=== PATIENT | female | born 1970 | race Caucasian/White ===

== ENCOUNTER 2021-03-10 04:41 | Emergency (ER) | payer BC, SELFPAY ==
[2021-03-10 04:55] VITALS: BP 173/114; PULSE 84; RESP 18; TEMP 36.4; O2SAT 98; BMI 57.7
--- NOTE | 2021-03-10 05:02 | USCV_ITS ---
Mark Koo Age: 50 Gender: F : 1970 Exam Date: 03/10/2021 06:09 Ordering Phys: Dick Sheridan MD Technologist: Missy Peralta Exam Location: [facility] – [place] Indication: BLE PAIN HISTORY: Lower extremity swelling. Lower extremity pain. PROCEDURES: Venous duplex imaging was performed in bilateral lower extremities. The following venous structures were evaluated: common femoral vein, profunda vein, proximal portion of the greater saphenous vein, superficial femoral vein, and the popliteal vein. In addition, the posterior tibial and peroneal trunk were evaluated. Serial compression, augmentation maneuvers, and spectral Doppler flow evaluation were performed. FINDINGS: Examination was technically limited due to body habitus. Normal 2-D Doppler and augmentation and compressibility throughout the lower extremity venous structures. Additional imaging through the proximal calf veins also reveals no thrombus. Limited evaluation of the greater saphenous vein is patent with no thrombus. Small right popliteal cyst. CONCLUSIONS No DVT bilateral lower extremities. Dr. Jackie Vanegas DO (Electronically Signed) Final Date: 10 March 2021 07:44 S
--- NOTE | 2021-03-10 05:02 | W.ED.GENADLT ---
Documented by User: Dick Sheridan MD 03/10/21 05:40 HPI - General Adult General: Chief complaint: Extremity Problem,Nontraumatic Stated complaint: right leg pain Time Seen by Provider: 03/10/21 04:56 History of Present Illness: HPI narrative: This patient is a 50-year-old female with a history of diabetes presents to the emergency department complaint of right lower leg pain in the calf. Patient states she has been on Eliquis for the past 2 years. But stopped it about a month and a half ago as she did not think she needed it. Then she started having some aching in her right leg posteriorly and decided 3 days ago to start her Eliquis back subsequently started her menstrual period and was very heavy so she stopped it again. Patient states she has significant calf pain on the right. Previous DVT was in the left lower extremity. Patient is concerned that she has a blood clot again. Will do medical evaluation treat as needed Onset (ago): day(s) Location: lower extremity Severity: moderate and similar to prior episodes Associated symptoms: Deny chest pain, dyspnea, headache(s), nausea, rash, palpitations or vomiting Review of Systems General: Reports: 10 or more systems reviewed and unremarkable except in HPI and below Const: Denies: fever(s), chills, body aches or fatigue Eyes: Denies: change in vision or blurry vision ENMT: Denies: throat pain, hoarseness or mouth pain Card: Denies: chest pain, palpitations, irregular heart rhythm, edema, swelling of feet/ankles or lightheadedness Resp: Denies: dyspnea, productive cough, non-productive cough, wheezing or pain on inspiration GI: Denies: abdominal pain, nausea or vomiting : Denies: flank pain, difficulty voiding, dysuria, urinary frequency, urinary urgency or urinary hesitancy Musc: Reports: extremity pain and extremity swelling; Denies: neck pain, back pain, joint pain, joint swelling, joint redness, joint warmth or limited range of motion Skin/Breast: Denies: rash, pruritus, erythema or skin tenderness Neuro: Denies: headache(s), numbness in extremities or weakness in extremities Psych: Denies: anxiety or depression Physical Exam Const: COMMON NORMALS: no acute distress, average body habitus, patient oriented x3, no limitations, healthy appearing, alert and well nourished HENMT: COMMON NORMALS: normocephalic, atraumatic, hearing grossly normal bilaterally, external ears normal, EAC's normal, TM's normal bilaterally, Normal external nose present, Normal nasal mucous membranes and turbinates present, moist oral mucous membranes, oropharynx normal, dentition normal and gingiva normal HEAD & SCALP: normocephalic and atraumatic NOSE: Normal external nose present and Normal nasal mucous membranes and turbinates present EXTERNAL EAR: Yes external ears normal EXTERNAL AUDITORY CANAL: EAC's normal TYMPANIC MEMBRANE: TM's normal bilaterally Neck/C-Spine: COMMON NORMALS: full ROM, no lymphadenopathy, supple, no meningeal signs, no JVD, Thyroid normal and No carotid bruits THYROID: Thyroid normal Chest: COMMONS NORMALS: normal inspection of the chest, normal palpation of entire chest wall, normal inspection of the breasts and normal palpation of the breasts Breast/axilla inspection: Yes normal inspection of the breasts BREAST/AXILLA PALPATION: Yes normal palpation of the breasts Resp: COMMON NORMALS: normal respiratory effort, No retractions, No use of accessory muscles, clear to auscultation bilaterally and percussion normal AUSCULTATION: clear to auscultation bilaterally PERCUSSION: percussion normal Cardio: COMMON NORMALS: no JVD, regular rate, regular rhythm, S1 normal heart sound present, S2 normal heart sound present, No gallops present (Cardio), No clicks present (Cardio), No murmurs present (Cardio), No rub (Cardio) and Peripheral pulses 2+ throughout RATE: regular rate RHYTHM: regular rhythm HEART SOUNDS: S1 normal heart sound present and S2 normal heart sound present PERIPHERAL PULSES: Peripheral pulses 2+ throughout GI: COMMON NORMALS: Normal to inspection, nondistended, normoactive bowel sounds present, Soft to palpation, non-tender, No hepatosplenomegaly present, no masses and no bruits PALPATION: Yes Soft to palpation and Yes No hepatosplenomegaly present Back/Pelvis: COMMON NORMALS: thoracic and lumbar spine normal to inspection, no thoracic nor lumbar tenderness, thoraco-lumbar ROM normal and straight leg raise negative bilaterally Extremity: COMMON NORMALS: normal to inspection, full ROM, capillary refill normal, no joint enlargement, no clubbing, cyanosis or edema and no pedal edema RIGHT LOWER EXTREMITY: Yes lower leg Right lower leg: Yes palpation (Tenderness on palpation consistent with Homans' sign) Neuro: COMMON NORMALS: patient oriented x3 SENSORIUM/ORIENTATION: Yes alert MENINGEAL SIGNS: Yes no meningeal signs Course Consultations: Consultation #1: Care transferred to Dr. Treadwell for shift change Time: 05:39 Vital Signs: Vital signs: Vital Signs Temperature 97.6 F 03/10/21 04:55 Pulse Rate 86 03/10/21 07:09 Respiratory Rate 18 03/10/21 06:37 Blood Pressure 135/91 03/10/21 07:09 Pulse Oximetry 100 03/10/21 07:09 [facility] - General Adult Lab Data: Labs: Lab Results 03/10/21 03/10/21 03/10/21 Range/Units 05:10 05:15 05:15 WBC 9.3 (4.0-10.0) 10^3/ uL RBC 4.81 (4.1-5.3) 10^6/u L Hgb 14.8 (11.5-15.3) g/dL Hct 45.1 (37.0-47.0) % MCV 93.8 (81-99) fL MCH 30.8 (28.0-34.0) pg MCHC 32.8 (30.0-36.0) g/dL RDW 12.4 (12.1-15.1) % Plt Count 328 (130-400) 10^3/c mm MPV 9.9 (7.4-10.4) fL Neut % (Auto) 69.6 % Lymph % (Auto) 20.7 % Jackson % (Auto) 5.8 % Eos % (Auto) 3.1 % Baso % (Auto) 0.5 % Neut # (Auto) 6.44 (1.8-7.7) 10^3/u L Lymph # (Auto) 1.9 (0.8-4.8) 10^3/u L Jackson # (Auto) 0.5 (0.2-0.9) 10^3/u L Eos # (Auto) 0.3 (0.0-0.8) 10^3/u L Baso # (Auto) 0.1 (0.0-0.1) 10^3/u L Nucleated RBC % (a uto) 0 % Nucleated RBCs # 0.0 /100WBC PT (12.1-14.9) SECO NDS INR (0.8-1.2) APTT (23.9-36.7) SECO NDS D-Dimer (0-0.59) ug/mIFE U Sodium 137 (136-145) mmol/L Potassium 4.1 (3.5-5.1) mmol/L Chloride 101 (98-107) mmol/L Carbon Dioxide 25 (22-29) mmol/L Anion Gap 15.1 (5-19) BUN 12 (6-20) mg/dL Creatinine 0.7 (0.5-0.9) mg/dL GFR Calculation 88.9 L (90-130) mL/min Glucose 104 (65-115) mg/dL Calculated Osmolal ity 284 L (285-295) mOsm/k g Calcium 8.8 (8.5-10.5) mg/dL Total Bilirubin 0.3 (0.15-1.2) mg/dL AST 16 (0-32) U/L ALT 17 (0-33) U/L Alkaline Phosphata se 88 (35-105) IU/L Total Protein 7.3 (6.6-8.7) g/dL Albumin 3.8 (3.5-5.2) g/dL Globulin 3.5 (1.3-4.6) g/dL Urine Color Yellow (Yellow) Urine Appearance Clear (CLEAR) Urine pH 7 (5-7) Ur Specific Gravit y 1.005 (1.005-1.030) Urine Protein Neg (Negative) Urine Glucose (UA) Norm (Normal) Urine Ketones Negative (Negative) Urine Blood 3+ H (Negative) Urine Nitrate Negative (Negative) Urine Bilirubin Neg (Negative) Urine Urobilinogen Norm (Negative) mg/dL Ur Leukocyte Jessica ase Trace H (Negative) Urine RBC 0-4 H (0-2) /hpf Urine WBC 5-10 H (0-5) /hpf Ur Squamous Epith Cells 0-4 H (0-5) /hpf Amorphous Sediment Not Reportable Urine Bacteria 1+ H (NONE) /hpf 03/10/21 Range/Units 05:15 WBC (4.0-10.0) 10^3/ uL RBC (4.1-5.3) 10^6/u L Hgb (11.5-15.3) g/dL Hct (37.0-47.0) % MCV (81-99) fL MCH (28.0-34.0) pg MCHC (30.0-36.0) g/dL RDW (12.1-15.1) % Plt Count (130-400) 10^3/c mm MPV (7.4-10.4) fL Neut % (Auto) % Lymph % (Auto) % Jackson % (Auto) % Eos % (Auto) % Baso % (Auto) % Neut # (Auto) (1.8-7.7) 10^3/u L Lymph # (Auto) (0.8-4.8) 10^3/u L Jackson # (Auto) (0.2-0.9) 10^3/u L Eos # (Auto) (0.0-0.8) 10^3/u L Baso # (Auto) (0.0-0.1) 10^3/u L Nucleated RBC % (a uto) % Nucleated RBCs # /100WBC PT 13.70 (12.1-14.9) SECO NDS INR 1.02 (0.8-1.2) APTT 28.1 (23.9-36.7) SECO NDS D-Dimer 2.01 H (0-0.59) ug/mIFE U Sodium (136-145) mmol/L Potassium (3.5-5.1) mmol/L Chloride (98-107) mmol/L Carbon Dioxide (22-29) mmol/L Anion Gap (5-19) BUN (6-20) mg/dL Creatinine (0.5-0.9) mg/dL GFR Calculation (90-130) mL/min Glucose (65-115) mg/dL Calculated Osmolal ity (285-295) mOsm/k g Calcium (8.5-10.5) mg/dL Total Bilirubin (0.15-1.2) mg/dL AST (0-32) U/L ALT (0-33) U/L Alkaline Phosphata se (35-105) IU/L Total Protein (6.6-8.7) g/dL Albumin (3.5-5.2) g/dL Globulin (1.3-4.6) g/dL Urine Color (Yellow) Urine Appearance (CLEAR) Urine pH (5-7) Ur Specific Gravit y (1.005-1.030) Urine Protein (Negative) Urine Glucose (UA) (Normal) Urine Ketones (Negative) Urine Blood (Negative) Urine Nitrate (Negative) Urine Bilirubin (Negative) Urine Urobilinogen (Negative) mg/dL Ur Leukocyte Jessica ase (Negative) Urine RBC (0-2) /hpf Urine WBC (0-5) /hpf Ur Squamous Epith Cells (0-5) /hpf Amorphous Sediment Urine Bacteria (NONE) /hpf Discharge Plan Discharge Patient Disposition: Home Clinical Impression: Pain in right lower leg Condition: Stable Prescriptions: New diclofenac sodium 75 mg tablet,delayed release (DR/EC) 75 mg PO Q12H PRN (Reason: pain) Qty: 20 RF: 0 Discharge Orders: Discharge ED (Routine); Ordered 03/10/21 Ordered By: Mikael Treadwell Patient Instructions: Opioid Safety Coding Level of Care Code ED Director Of Cardiology for Chg Fwd Exam Comprehensive Documented by User: Mikael Treadwell DO 03/10/21 08:05 HPI - General Adult General: Chief complaint: Extremity Problem,Nontraumatic Stated complaint: right leg pain Time Seen by Provider: 03/10/21 04:56 Course Vital Signs: Vital signs: Vital Signs Temperature 97.6 F 03/10/21 04:55 Pulse Rate 86 03/10/21 07:09 Respiratory Rate 18 03/10/21 06:37 Blood Pressure 135/91 03/10/21 07:09 Pulse Oximetry 100 03/10/21 07:09 MDM - General Adult MDM Narrative: Medical decision making narrative: Venous duplex negative. Examined the patient nation of the patient complained mostly of right lateral calf pain straight leg raising negative sensation is normal. Her D-dimer is mildly elevated but she was having some abnormal uterine bleeding that has stopped. She not taking Eliquis lately. The original DVT was precipitated by a lot of extra driving she had done for her work. She does not have a primary care provider at this time. I suspect this is more musculoskeletal she also was noted during exam we had her straighten her leg to develop some muscle cramping that was resolved by repositioning she had a negative straight leg raising. Some of this may just be muscle cramping. Her electrolytes are normal. We will go ahead and discharge her home with diclofenac to use as needed set her up for PCP. Urine shows a contamination she not currently having any symptoms of UTI so we are not going to treat her with any antibiotics. Lab Data: Labs: Lab Results 03/10/21 03/10/21 03/10/21 Range/Units 05:10 05:15 05:15 WBC 9.3 (4.0-10.0) 10^3/ uL RBC 4.81 (4.1-5.3) 10^6/u L Hgb 14.8 (11.5-15.3) g/dL Hct 45.1 (37.0-47.0) % MCV 93.8 (81-99) fL MCH 30.8 (28.0-34.0) pg MCHC 32.8 (30.0-36.0) g/dL RDW 12.4 (12.1-15.1) % Plt Count 328 (130-400) 10^3/c mm MPV 9.9 (7.4-10.4) fL Neut % (Auto) 69.6 % Lymph % (Auto) 20.7 % Jackson % (Auto) 5.8 % Eos % (Auto) 3.1 % Baso % (Auto) 0.5 % Neut # (Auto) 6.44 (1.8-7.7) 10^3/u L Lymph # (Auto) 1.9 (0.8-4.8) 10^3/u L Jackson # (Auto) 0.5 (0.2-0.9) 10^3/u L Eos # (Auto) 0.3 (0.0-0.8) 10^3/u L Baso # (Auto) 0.1 (0.0-0.1) 10^3/u L Nucleated RBC % (a uto) 0 % Nucleated RBCs # 0.0 /100WBC PT (12.1-14.9) SECO NDS INR (0.8-1.2) APTT (23.9-36.7) SECO NDS D-Dimer (0-0.59) ug/mIFE U Sodium 137 (136-145) mmol/L Potassium 4.1 (3.5-5.1) mmol/L Chloride 101 (98-107) mmol/L Carbon Dioxide 25 (22-29) mmol/L Anion Gap 15.1 (5-19) BUN 12 (6-20) mg/dL Creatinine 0.7 (0.5-0.9) mg/dL GFR Calculation 88.9 L (90-130) mL/min Glucose 104 (65-115) mg/dL Calculated Osmolal ity 284 L (285-295) mOsm/k g Calcium 8.8 (8.5-10.5) mg/dL Total Bilirubin 0.3 (0.15-1.2) mg/dL AST 16 (0-32) U/L ALT 17 (0-33) U/L Alkaline Phosphata se 88 (35-105) IU/L Total Protein 7.3 (6.6-8.7) g/dL Albumin 3.8 (3.5-5.2) g/dL Globulin 3.5 (1.3-4.6) g/dL Urine Color Yellow (Yellow) Urine Appearance Clear (CLEAR) Urine pH 7 (5-7) Ur Specific Gravit y 1.005 (1.005-1.030) Urine Protein Neg (Negative) Urine Glucose (UA) Norm (Normal) Urine Ketones Negative (Negative) Urine Blood 3+ H (Negative) Urine Nitrate Negative (Negative) Urine Bilirubin Neg (Negative) Urine Urobilinogen Norm (Negative) mg/dL Ur Leukocyte Jessica ase Trace H (Negative) Urine RBC 0-4 H (0-2) /hpf Urine WBC 5-10 H (0-5) /hpf Ur Squamous Epith Cells 0-4 H (0-5) /hpf Amorphous Sediment Not Reportable Urine Bacteria 1+ H (NONE) /hpf 03/10/21 Range/Units 05:15 WBC (4.0-10.0) 10^3/ uL RBC (4.1-5.3) 10^6/u L Hgb (11.5-15.3) g/dL Hct (37.0-47.0) % MCV (81-99) fL MCH (28.0-34.0) pg MCHC (30.0-36.0) g/dL RDW (12.1-15.1) % Plt Count (130-400) 10^3/c mm MPV (7.4-10.4) fL Neut % (Auto) % Lymph % (Auto) % Jackson % (Auto) % Eos % (Auto) % Baso % (Auto) % Neut # (Auto) (1.8-7.7) 10^3/u L Lymph # (Auto) (0.8-4.8) 10^3/u L Jackson # (Auto) (0.2-0.9) 10^3/u L Eos # (Auto) (0.0-0.8) 10^3/u L Baso # (Auto) (0.0-0.1) 10^3/u L Nucleated RBC % (a uto) % Nucleated RBCs # /100WBC PT 13.70 (12.1-14.9) SECO NDS INR 1.02 (0.8-1.2) APTT 28.1 (23.9-36.7) SECO NDS D-Dimer 2.01 H (0-0.59) ug/mIFE U Sodium (136-145) mmol/L Potassium (3.5-5.1) mmol/L Chloride (98-107) mmol/L Carbon Dioxide (22-29) mmol/L Anion Gap (5-19) BUN (6-20) mg/dL Creatinine (0.5-0.9) mg/dL GFR Calculation (90-130) mL/min Glucose (65-115) mg/dL Calculated Osmolal ity (285-295) mOsm/k g Calcium (8.5-10.5) mg/dL Total Bilirubin (0.15-1.2) mg/dL AST (0-32) U/L ALT (0-33) U/L Alkaline Phosphata se (35-105) IU/L Total Protein (6.6-8.7) g/dL Albumin (3.5-5.2) g/dL Globulin (1.3-4.6) g/dL Urine Color (Yellow) Urine Appearance (CLEAR) Urine pH (5-7) Ur Specific Gravit y (1.005-1.030) Urine Protein (Negative) Urine Glucose (UA) (Normal) Urine Ketones (Negative) Urine Blood (Negative) Urine Nitrate (Negative) Urine Bilirubin (Negative) Urine Urobilinogen (Negative) mg/dL Ur Leukocyte Jessica ase (Negative) Urine RBC (0-2) /hpf Urine WBC (0-5) /hpf Ur Squamous Epith Cells (0-5) /hpf Amorphous Sediment Urine Bacteria (NONE) /hpf Discharge Plan Discharge Patient Disposition: Home Clinical Impression: Pain in right lower leg Condition: Stable Prescriptions: New diclofenac sodium 75 mg tablet,delayed release (DR/EC) 75 mg PO Q12H PRN (Reason: pain) Qty: 20 RF: 0 Discharge Orders: Discharge ED (Routine); Ordered 03/10/21 Ordered By: Mikael Treadwell Patient Instructions: Opioid Safety Coding Level of Care Code ED Director Of Cardiology for Chg Fwd Exam Comprehensive
[2021-03-10 05:33] LABS: Basophils # 0.1 10^3/uL (0.0-0.1); Basophils % 0.5 %; Eosinophils # 0.3 10^3/uL (0.0-0.8); Eosinophils % 3.1 %; Hematocrit 45.1 % (37.0-47.0); Hemoglobin 14.8 g/dL (11.5-15.3); Lymphocytes # 1.9 10^3/uL (0.8-4.8); Lymphocytes % 20.7 %; Mean Corpuscular HGB Conc 32.8 g/dL (30.0-36.0); Mean Corpuscular Hemoglobin 30.8 pg (28.0-34.0); Mean Corpuscular Volume 93.8 fL (81-99); Mean Platelet Volume 9.9 fL (7.4-10.4); Monocytes # 0.5 10^3/uL (0.2-0.9); Monocytes % 5.8 %; Neutrophils # 6.44 10^3/uL (1.8-7.7); Neutrophils % 69.6 %; Nucleated Red Blood Cells % 0 %; Platelet Count 328 10^3/cmm (130-400); Red Blood Count 4.81 10^6/uL (4.1-5.3); Red Cell Distribution Width 12.4 % (12.1-15.1); White Blood Count 9.3 10^3/uL (4.0-10.0)
[2021-03-10 05:41] LABS: Add Urine Culture? No; Add Urine Microscopic? YES; Bacteria Urine 1+ /hpf; Bilirubin Urine Neg (Negative); Blood Urine 3+ (Negative); Glucose Urine UA Norm (Normal); Ketones Urine Negative (Negative); Leukocyte Esterase Urine Trace (Negative); Nitrate Urine Negative (Negative); Protein Urine Neg (Negative); RBC Urine 0-4 /hpf (0-2); Specific Gravity, Urine 1.005 (1.005-1.030); Squamous Epithelial Cell Urine 0-4 /hpf (0-5); Urine Appearance Clear (CLEAR); Urine Color Yellow (Yellow); Urobilinogen Urine Norm (Negative); pH Urine 7 (5-7)
[2021-03-10 05:50] LABS: Alanine Aminotransferase 17 U/L (0-33); Albumin Level 3.8 g/dL (3.5-5.2); Alkaline Phosphatase 88 IU/L (35-105); Anion Gap 15.1 (5-19); Aspartate Amino Transferase 16 U/L (0-32); Blood Urea Nitrogen 12 mg/dL (6-20); Calcium 8.8 mg/dL (8.5-10.5); Carbon Dioxide 25 mmol/L (22-29); Chloride 101 mmol/L (98-107); Globulin 3.5 g/dL (1.3-4.6); Glomerular Filtration Rate 88.9 mL/min (90-130); Glucose 104 mg/dL (65-115); Osmolality Calculated 284 mOsm/kg (285-295); Potassium 4.1 mmol/L (3.5-5.1); Sodium 137 mmol/L (136-145); Total Bilirubin 0.3 mg/dL (0.15-1.2); Total Protein 7.3 g/dL (6.6-8.7)
[2021-03-10 06:07] LABS: D Dimer 2.01 ug/mIFEU (0-0.59); INR 1.02 (0.8-1.2); Partial Thromboplastin Time 28.1 SECONDS (23.9-36.7)
[2021-03-10 06:37] VITALS: BP 151/91; PULSE 79; RESP 18; O2SAT 95
[2021-03-10 07:09] VITALS: BP 135/91; PULSE 86; O2SAT 100
--- NOTE | 2021-03-10 08:39 | DCPLANNER ---
mortuary operations manager was asked to get patient established with a primary care physician, Dr. Valencia, at [facility]. mortuary operations manager called the clinic, spoke with Binta, gave clinic patients information. A follow up appointment was scheduled for Tuesday, March 23, 2021 at 8:[address] Bennett. mortuary operations manager informed ER physician, and patient of the scheduled appointment.
--- NOTE | 2021-03-25 11:56 | DCPLANNER ---
Patient had a follow up appointment scheduled for 03.23.21 with [facility] with Dr. Bennett - patient did attend appointment.
== END 2021-03-10 09:00 | disposition home or self-care (01) ==
PROVIDERS: Emergency Medicine; Emergency Provider Family Medicine
DX: M79.661 Pain in right lower leg (principal); E11.9 Type 2 diabetes mellitus without complications
CPT/HCPCS: 80053; 81001; 85025; 85378; 85610; 85730; 93970; 99283

== ENCOUNTER → 2021-03-23 09:16 | Outpatient (BNVA) | payer BC, SELFPAY | PROVIDERS: PCP Family Medicine; Visit Provider Family Medicine | DX: R63.5 Abnormal weight gain (principal); Z13.1 Encounter for screening for diabetes mellitus; Z13.6 Encounter for screening for cardiovascular disorders; M72.2 Plantar fascial fibromatosis | CPT/HCPCS: 80053; 80061; 83036; 84443 ==

== ENCOUNTER → 2021-06-30 09:54 | Outpatient (BNVA) | payer BC, SELFPAY | PROVIDERS: PCP Family Medicine; Visit Provider Podiatrist Foot & Ankle Surgery | DX: M79.672 Pain in left foot (principal); M79.671 Pain in right foot; M21.612 Bunion of left foot; M21.611 Bunion of right foot | CPT/HCPCS: 73630 ==

== ENCOUNTER 2021-07-19 20:37 | Emergency (ER) | payer BC, SELFPAY ==
[2021-07-19 20:51] VITALS: BP 169/104; PULSE 98; RESP 18; TEMP 36.4; O2SAT 95; BMI 55.7
--- NOTE | 2021-07-19 20:57 | USR_ITS ---
PROCEDURE INFORMATION: Exam: US Duplex Right Lower Extremity Veins, Limited Exam date and time: 07/19/2021 8:57 PM Age: 51 years old Clinical indication: Pain; Leg, lower; Right; Additional info: Dvt TECHNIQUE: Imaging protocol: Real-time Duplex ultrasound of the Right Lower Extremity with 2-D cao scale, color Doppler flow and spectral waveform analysis with image documentation. Limited exam was focused on the right lower extremity veins. COMPARISON: [place] [id number] ORTH 06/30/2021 10:02 AM FINDINGS: Right deep veins: Nonocclusive deep vein thrombosis in the right popliteal vein and peroneal vein. Normal compressibility, flow, and augmentation in the right common femoral, femoral, and profunda femoral veins. Right superficial veins: Varicose veins in the posterior right calf with intraluminal thrombus. Soft tissues: Unremarkable. US/[place] [id number] IMPRESSION: 1. Nonocclusive deep vein thrombosis in the right popliteal and peroneal veins. 2. Superficial thrombosis within varicose veins in the posterior right calf. Radiation Dose CTDIVOL = (mGy): DLP = (mGy-cm)
--- NOTE | 2021-07-19 20:58 | ED_ITS ---
HPI - Extremity Injury (Lower) General: Chief Complaint: Extremity Problem,Nontraumatic Stated Complaint: sent from Urgent Care for RT LEG Time Seen by Provider: 07/19/21 20:58 History of Present Illness: HPI Narrative: 51-year-old female comes in today with complaints of pain to the calf of the right lower leg. Patient appears well. Patient appears no acute distress. Patient reports that she has history of DVT but this does not remind her of the same pain that she had before. Patient was seen at urgent care and they recommended that she be evaluated further for DVT rule out. Patient does not take her routine antiplatelet or anticoagulant agent. Review of Systems General: Reports: 10 or more systems reviewed and unremarkable except in HPI and below Musc: Reports: other (Right calf pain) PFSH ED PFSH: Family History Other Cancer Chronic kidney disease (CKD) Diabetes Hypertension Stroke Social History Smoking and tobacco status: never smoked Second hand smoke exposure: No Alcohol intake: never Desire information about alcohol rehabilitation?: No Desire information about substance/drug rehabilitation?: No Physical Exam Const: COMMON NORMALS: no acute distress and patient oriented x3 GENERAL APPEARANCE: cooperative HENMT: COMMON NORMALS: normocephalic and Normal external nose present HEAD & SCALP: normal to inspection and normocephalic NOSE: Normal external nose present Eye: GENERAL EYE: appearance normal, both eyes and all related structures Neck/C-Spine: COMMON NORMALS: full ROM Lymph: LYMPHATIC: no lymphadenopathy noted Chest: COMMONS NORMALS: normal inspection of the chest Resp: COMMON NORMALS: normal respiratory effort EFFORT & INSPECTION: Yes able to speak in complete sentences Cardio: COMMON NORMALS: regular rate and regular rhythm RATE: regular rate RHYTHM: regular rhythm GI: COMMON NORMALS: non-tender : COMMON NORMALS: Yes no CVA tenderness BLADDER/KIDNEY EXAM: Yes no CVA tenderness Back/Pelvis: COMMON NORMALS: no CVA tenderness and thoracic and lumbar spine normal to inspection Extremity: NARRATIVE EXTREMITY EXAM: Right calf tenderness and redness is noted on palpation with a ropey vein noted to the posterior right leg. No distal swelling or erythema is noted. Neuro: COMMON NORMALS: patient oriented x3 and moves all extremities Psych: COMMON NORMALS: mental status grossly normal and cooperative Skin: COMMON NORMALS: no rashes or lesions noted GENERAL SKIN EXAM: no rashes or lesions noted Course Vital Signs: Vital signs: Vital Signs Temperature 97.5 F L 07/19/21 20:51 Pulse Rate 98 07/19/21 20:51 Respiratory Rate 18 07/19/21 20:51 Blood Pressure 169/104 07/19/21 20:51 Pulse Oximetry 95 07/19/21 20:51 MDM - Extremity Injury (Lower) MDM Narrative: Medical decision making narrative: Patient comes in for concern of swelling and redness to the right lower leg. On exam there is some redness and tenderness to the posterior right lower leg in the calf region with a ropey vein. Differential diagnosis includes superficial thrombophlebitis, DVT, varicose vein. Ultrasound extremity noted a superficial thrombophlebitis but also a DVT into the popliteal vein. We will start patient on Eliquis 10 mg twice a day for 7 days. Patient will then continue at 5 mg Carpio a day. Presc riptions were written for Eliquis 5 mg twice daily. Patient already had Eliquis at home and could start the medication at 10 mg twice a day. She reported understanding of care plan and need for follow-up or return to the ER for shortness of breath, chest pain or other symptoms of concern. Discharge Plan Discharge Patient Disposition: Home Clinical Impression: Deep vein thrombosis of lower extremity Qualifiers: Affected thrombotic vein of extremity: popliteal Chronicity: acute Laterality: right Qualified Code(s): I82.431 - Acute embolism and thrombosis of right popliteal vein Condition: Stable Prescriptions: New Eliquis 5 mg tablet 5 mg PO BID Qty: 60 RF: 2 No Action (DME) Night Splint to right See Rx Instructions .Route .MEDSUPPLY Qty: 1 RF: 0 (DME) Custom molded orthotics See Rx Instructions .Route .MEDSUPPLY Qty: 1 RF: 0 Discharge Orders: Discharge ED (Routine); Ordered 07/19/21 Ordered By: Jose L Young Referrals: Agapito Bennett DO [Primary Care Provider] - Discharge Diet: Usual diet Discharge Activity: Increase activity as tolerated Patient Instructions: Apixaban (By mouth) (Eliquis), Deep Vein Thrombosis (ED), Opioid Safety Activity Restrictions/Additional Instructions: You will need to take Eliquis 10 mg twice daily for 7 days, then 5 mg twice daily for at least 3 to 6 months. Follow-up with primary care in 1 week for recheck. Return to the ER for worsening symptoms such as chest pain or shortness of breath. Coding Level of Care Code ED Cup Trimming Machine Operator for Denita Rodriguez Exam Comprehensive
[2021-07-19 22:03] VITALS: BP 149/97; PULSE 87; RESP 18; O2SAT 100
[2021-07-19] MEDS: apixaban 5 mg Tablet 10 MG PO (22:03)
== END 2021-07-19 22:04 | disposition home or self-care (01) ==
PROVIDERS: Emergency Provider Nurse Practitioner Family; PCP Family Medicine
DX: I82.431 Acute embolism and thrombosis of right popliteal vein (principal)
CPT/HCPCS: 93971; 99283

== ENCOUNTER 2021-08-04 14:34 | Outpatient (CLI) | payer BC, SELFPAY | END 2021-08-04 14:35 | disposition home or self-care (01) | LOC: SPT 14:34 | PROVIDERS: PCP Family Medicine; Visit Provider Podiatrist Foot & Ankle Surgery | DX: Z46.89 Encounter for fitting and adjustment of other specified devices (principal); M72.2 Plantar fascial fibromatosis | CPT/HCPCS: 97760; L3030 ==

== ENCOUNTER → 2022-04-13 11:23 | Outpatient (BNVA) | payer BC, SELFPAY | PROVIDERS: PCP Family Medicine; Visit Provider Family Medicine | DX: R63.5 Abnormal weight gain (principal); Z13.1 Encounter for screening for diabetes mellitus; R73.03 Prediabetes | CPT/HCPCS: 80053; 80061; 83036; 84439; 84443; 85025 ==

== ENCOUNTER → 2022-05-25 11:30 | Outpatient (BNVA) | payer BC, SELFPAY | PROVIDERS: PCP Family Medicine; Visit Provider Family Medicine | DX: N39.0 Urinary tract infection, site not specified (principal) | CPT/HCPCS: 81000 ==

== ENCOUNTER → 2022-07-12 16:41 | Outpatient (BNVA) | payer BC, SELFPAY | PROVIDERS: PCP Family Medicine; Visit Provider Nurse Practitioner Family | DX: R10.13 Epigastric pain (principal); R73.9 Hyperglycemia, unspecified | CPT/HCPCS: 80053; 83036; 84443; 85025 ==

== ENCOUNTER → 2022-07-21 16:26 | Outpatient (BNVA) | payer BC, SELFPAY | PROVIDERS: PCP Family Medicine; Visit Provider Nurse Practitioner Family | DX: K90.49 Malabsorption due to intolerance, not elsewhere classified (principal); R10.13 Epigastric pain | CPT/HCPCS: 86003; 86008 ==

== ENCOUNTER → 2022-08-03 11:50 | Outpatient (BNVA) | payer BC, SELFPAY | PROVIDERS: PCP Family Medicine; Visit Provider Nurse Practitioner Women's Health | DX: Z01.419 Encounter for gynecological examination (general) (routine) without abnormal findings (principal) | CPT/HCPCS: 87624 ==

== ENCOUNTER 2022-11-10 09:54 | Outpatient (CLI) | payer BC, SELFPAY ==
--- NOTE | 2022-11-10 10:06 | MM_ITS ---
WS: [id number] BILATERAL SCREENING DIGITAL TOMOSYNTHESIS MAMMOGRAM WITH CAD HISTORY: SCREEN COMPARISON: None available. Bilateral CC and MLO views with tomosynthesis and synthetic mammography submitted. Computer aided det ection analyzed. Breast composition: There are scattered areas of fibroglandular density. No suspicious masses, microc alcifications or architectural distortion. Benign calcifications in each breast. MM/[place] [id number] IMPRESSION: BI-RADS: 2-Benign FOLLOW UP: 1 Year Follow-up
== END 2022-11-10 09:55 | disposition home or self-care (01) ==
LOC: RAD 09:56
PROVIDERS: PCP Family Medicine; Visit Provider Family Medicine
DX: Z12.31 Encounter for screening mammogram for malignant neoplasm of breast (principal)
CPT/HCPCS: 77063; 77067

== ENCOUNTER → 2023-03-31 10:25 | Outpatient (BNVA) | payer BC, SELFPAY | PROVIDERS: PCP Family Medicine; Visit Provider Nurse Practitioner Women's Health | DX: N92.6 Irregular menstruation, unspecified (principal); N95.1 Menopausal and female climacteric states | CPT/HCPCS: 82670; 83001; 84146; 84443 ==

== ENCOUNTER → 2023-04-10 10:34 | Outpatient (BNVA) | payer BC, SELFPAY | PROVIDERS: PCP Family Medicine; Visit Provider Nurse Practitioner Women's Health | DX: N92.6 Irregular menstruation, unspecified (principal) | CPT/HCPCS: 76830 ==

== ENCOUNTER 2023-10-20 10:09 | Emergency (ER) | payer OTHER, SELFPAY ==
[2023-10-20 10:11] VITALS: BP 158/100; PULSE 74; RESP 15; TEMP 36.5; O2SAT 100
[2023-10-20 10:27] VITALS: BP 169/96; PULSE 68; RESP 17; O2SAT 97
--- NOTE | 2023-10-20 10:27 | ECG_ITS ---
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 Measurements Intervals Tasley Rate: 78 P: 42 OR: 191 QRS: -11 QRSD: 77 T: 41 QT: 401 QTc: 457 Interpretive Statements SINUS RHYTHM POSSIBLE LEFT ATRIAL ENLARGEMENT [-0.1mV P-WAVE IN V1/V2] POSSIBLE LEFT VENTRICULAR HYPERTROPHY [VOLTAGE CRITERIA PLUS LAE OR QRS WIDENING] POSSIBLE ANTERIOR MYOCARDIAL INFARCTION , PROBABLY OLD [30 ms Q WAVE IN V3/V4, OR R < 0.2 mV IN V4] No previous ECG available for comparison Electronically Signed On 10-20-2023 17:58:30 WINE SALES REPRESENTATIVE by Jane Benitez M.D. [id number]
--- NOTE | 2023-10-20 10:27 | CT_ITS ---
WS: [id number] CT HEAD NONCONTRAST HISTORY: TIA TECHNIQUE: Contiguous axial imaging performed through the brain in 2.5 mm imaging. Bone and soft tiss ue windows. Sagittal and coronal reformats reviewed. All CT scans at [facility] use at least one of these dose optimization techniques: automated exposure control; mA and/or kV adjustment per pa tient size (includes targeted exams where dose is matched to clinical indication); or iterative recon struction. DLP: 1099.75 mGy.cm COMPARISON: None available. No acute intracranial hemorrhage, midline shift or mass effect. No significant atrophy. Mild small vessel ischemic disease. There is a prior lacunar infarct LEFT tem poral lobe adjacent to the sylvian fissure and in the LEFT cerebellum. Additional smaller lacunar inf arct in the RIGHT cerebellum. Ventricles: Normal size with no hydrocephalus. No inferior displacement of the cerebellar tonsils. Paranasal sinuses: As visualized are clear. Mastoid air cells: Well pneumatized. Calvarium and scalp: Skull is intact with no soft tissue edema or swelling. IMPRESSION: 1. No acute intracranial hemorrhage or edema. 2. Small chronic lacunar infarcts adjacent to the LEFT anterior sylvian fissure and bilaterally in t he cerebellum. No acute infarct.
--- NOTE | 2023-10-20 10:27 | ED_ITS ---
HPI - Neuro Symptoms/Deficit 2 General: Chief Complaint: Neuro Symptoms/Deficit Stated Complaint: Weakness/ Numbness Time Seen by Provider: 10/20/23 10:14 Source: patient Mode of arrival: ambulatory History of Present Illness: 53-year-old female presents emergency ro with complaint of difficulty speech and right arm numbness that began at about 7 AM this morning and lasted around 5 minutes early this morning until completely resolved at this point. No history of previous CVA hypertension diabetes mellitus. She has previously DVTs and was on Eliquis but quit taking on her own. No PEs. She not having any chest pain at this time. She had a syncopal episode back in August but she was never evaluated after this. Onset (ago): hour(s) Location: speech and right arm Severity: mild Quality: weak Relieving factors: none Exacerbating factors: none Associated symptoms: Deny chest pain, cough, diaphoresis, fevers/chills, headache(s), anorexia, malaise, nausea, seizures, short of breath, syncope, tingling, vertigo, vomiting or weakness Treatments Prior to Arrival: Aspirin (Five 325 mg tablets) Review of Systems 2 Const: Denies: fever(s), chills, malaise or diaphoresis Card: Denies: chest pain or syncope Resp: Denies: dyspnea GI: Denies: nausea or vomiting : Denies: dysuria, urinary frequency or urinary urgency Musc: Denies: neck pain or back pain Skin/Breast: Denies: rash Neuro: Denies: headache(s) or vertigo PFSH ED 2 PFSH: Medical History Gastroesophageal reflux disease No pertinent past medical history neghx: htn,dm,thyroid,pe PCP: Dr. Bennett Deep vein thrombosis, lower left extremity She has experienced 2 different DVTs; anti-coagulated with eliquis; last episode 2019. Surgical History H/O bladder repair surgery H/O dilation and curettage (~02/13/17) Hysteroscopy D&C performed at [place] with Dr. Colindres for menormetrorrhagia, dysmenorrhea. Report states a mirena IUD was placed. Pathology demonstrates no atypia. Hx of tonsillectomy as a child Hx of cholecystectomy (Unknown) History of fistula vaginal/rectal--- semi- repaired Family History Mother Breast cancer dx age 50's Father Diabetes Family history of thyroid problem Heart disease Hypertension Stroke Grandmother Ovarian cancer Maternal GGM--dx age 60's Denies family history of Colon cancer Uterine cancer Social History Substance/Drug Use: never Female Reproductive History: Spontaneous abortions: No NIH stroke score 2 NIHSS: Level Of Consciousness - 1a: 0 Level Of Consciousness Questions - 1b: Both Correct Level Of Consciousness Commands - 1c: Both Correct Best Gaze - 2: Normal Visual Leonard - 3: No Visual Loss Facial Palsy - 4: N ormal Motor Arm Right - 5: No Drift Motor Arm Left - 5: No Drift Motor Leg Right - 6: No Drift Motor Leg Left - 6: No Drift Limb Ataxia - 7: A bsent Sensory - 8: Normal Best Language - 9: No Aphasia Dysarthia - 10: Normal Extinction And Inattention - 11: 0 Score: Total Score: 0 Physical Exam 2 Const: COMMON NORMALS: no acute distress GENERAL APPEARANCE: cooperative and comfortable ORIENTATION/CONSCIOUSNESS: Yes awake, Yes oriented to person, Yes oriented to place and Yes oriented to time HENMT: COMMON NORMALS: normocephalic, atraumatic and hearing grossly normal bilaterally HEAD & SCALP: normocephalic and atraumatic Resp: COMMON NORMALS: normal respiratory effort, No retractions, No use of accessory muscles and clear to auscultation bilaterally AUSCULTATION: clear to auscultation bilaterally Cardio: COMMON NORMALS: regular rate, regular rhythm and No murmurs present (Cardio) RATE: regular rate RHYTHM: regular rhythm GI: COMMON NORMALS: Soft to palpation and No hepatosplenomegaly present A USCULTATION: Yes normoactive bowel sounds PALPATION: Yes Soft to palpation, No Tenderness to palpation present (GI), No Guarding due to palpation present (GI) and Yes No hepatosplenomegaly present Extremity: COMMON NORMALS: normal to inspection, capillary refill normal, no clubbing, cyanosis or edema, no calf tenderness and no pedal edema Neuro: SENSORIUM/ORIENTATION: Yes oriented to person, Yes oriented to place and Yes oriented to time Skin: COMMON NORMALS: no rashes or lesions noted GENERAL SKIN EXAM: no rashes or lesions noted Course 2 Vital Signs: Vital signs: Vital Signs Temperature 97.7 F 10/20/23 10:11 Pulse Rate 66 10/20/23 12:44 Respiratory Rate 18 10/20/23 12:44 Blood Pressure 135/93 10/20/23 12:44 Pulse Oximetry 100 10/20/23 12:44 Oxygen Delivery Me thod Room Air 10/20/23 10:11 MDM - Neuro Symptoms/Deficit Medical Decision Making No recurrence of symptoms. Exam remains normal CT head negative. Discharge patient home on dual antiplatelet therapy statin. Follow-up with neurology as an outpatient schedule outpatient MRI echocardiogram carotid and 48-hour Holter return if is further problems. reviewed findings with patient Medical Records I reviewed the patient's medical records. Lab Data I reviewed the patient's lab results. 10/20/23 11:31 10/20/23 11:31 Laboratory Results WBC 9.51 10^3/uL (3.29-11.43) 10/20/23 11:31 RBC 4.71 10^6/uL (3.85-5.65) 10/20/23 11:31 Hgb 14.70 g/dL (11.27-16.99) 10/20/23 11:31 Hct 44.4 % (36-47) 10/20/23 11:31 MCV 94.3 fl (85-98) 10/20/23 11:31 MCH 31.2 pg (27-33) 10/20/23 11:31 MCHC 33.1 g/dL (30-55) 10/20/23 11:31 RDW 12.3 % (12.1-15.1) 10/20/23 11:31 Plt Count 294 10^3/cmm (157-399) 10/20/23 11:31 MPV 9.8 fL (7.4-10.4) 10/20/23 11:31 Neut % (Auto) 72.0 % 10/20/23 11:31 Lymph % (Auto) 20.1 % 10/20/23 11:31 Dickson % (Auto) 6.6 % 10/20/23 11:31 Eos % (Auto) 0.6 % 10/20/23 11:31 Baso % (Auto) 0.3 % 10/20/23 11:31 Neut # (Auto) 6.84 10^3/uL (1.8-7.7) 10/20/23 11:31 Lymph # (Auto) 1.9 10^3/uL (0.8-4.8) 10/20/23 11:31 Dickson # (Auto) 0.6 10^3/uL (0.2-0.9) 10/20/23 11:31 Eos # (Auto) 0.1 10^3/uL (0.0-0.8) 10/20/23 11:31 Baso # (Auto) 0.0 10^3/uL (0.0-0.1) 10/20/23 11:31 Nucleated RBC % (auto) 0 % 10/20/23 11:31 Nucleated RBCs # 0.0 /100WBC 10/20/23 11:31 Sodium 140 mmol/L (136-145) 10/20/23 11:31 Potassium 4.1 mmol/L (3.5-5.1) 10/20/23 11:31 Chloride 105 mmol/L (98-107) 10/20/23 11:31 Carbon Dioxide 26 mmol/L (22-29) 10/20/23 11:31 Anion Gap 13.1 (5-19) 10/20/23 11:31 BUN 11 mg/dL (6-20) 10/20/23 11:31 Creatinine 0.6 mg/dL (0.5-0.9) 10/20/23 11:31 GFR Calculation 105.0 mL/min (90-130) 10/20/23 11:31 Glucose 89 mg/dL (65-115) 10/20/23 11:31 Calculated Osmolality 289 mOsm/kg (285-295) 10/20/23 11:31 Calcium 8.5 mg/dL (8.5-10.5) 10/20/23 11:31 Total Bilirubin 0.3 mg/dL (0.15-1.2) 10/20/23 11:31 AST 12 U/L (0-32) 10/20/23 11:31 ALT 15 U/L (0-33) 10/20/23 11:31 Alkaline Phosphatase 79 U/L (35-105) 10/20/23 11:31 Total Protein 6.7 g/dL (6.6-8.7) 10/20/23 11:31 Albumin 3.5 g/dL (3.5-5.2) 10/20/23 11:31 Globulin 3.2 g/dL (1.3-4.6) 10/20/23 11:31 All radiology interpretation(s) finalized by discharge Discharge Plan Discharge Patient Disposition: Home Clinical Impression: Transient cerebral ischemia Condition: Stable Prescriptions: New aspirin 81 mg tablet,delayed release (DR/EC) 81 mg PO DAILY Qty: 30 0RF atorvastatin 40 mg tablet 40 mg PO DAILY Qty: 30 0RF clopidogrel 75 mg tablet 75 mg PO DAILY Qty: 30 0RF No Action (DME) Custom molded orthotics See Rx Instructions .Route .MEDSUPPLY Qty: 1 0RF Rx Instructions: As directed Discharge Orders: Discharge ED (Routine); Ordered 10/20/23 Ordered By: Mikael Treadwell Referrals: Agapito Bennett, [Primary Care Provider] - Discharge Diet: Usual diet Discharge Activity: Increase activity as tolerated Patient Instructions: Opioid Safety, Pain Management, TIA Activity Restrictions/Additional Instructions: Thank you for choosing [facility] for your healthcare needs today. Please realize this is an emergency room and that we are providing you with a medical screening exam and this may not be complete and all inclusive of all the testing and or work up that you may need to determine your ailment or severity of your illness. It is very important that you follow up as instructed or that you return to the Emergency Department should you have concerns or if your condition changes or worsens in any way. You were seen today for a TIA. There are no acute findings on your exam or on the CT of your head. Recommend you start taking aspirin and clopidogrel daily along with atorvastatin to minimize risk for stroke in the future. Your blood pressure was also noted to be elevated. We recommend that you follow-up with your primary care doctor next week to reevaluate blood pressure. Return to emergency room if you have further problems. 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
--- NOTE | 2023-10-20 10:27 | XR_ITS ---
WS: [id number] Exam: XR chest 1V portable [id number] Date/Time of Exam: 10/20/2023 10:27 AM Reason For Exam: dyspnea/cough No previous exams. The lungs are fully expanded and clear. Normal cardiomediastinal silhouette and regional bony element s. Several calcified granulomas noted. IMPRESSION: 1. Negative chest.
[2023-10-20 10:53] VITALS: PULSE 70; RESP 19; O2SAT 100
[2023-10-20 11:47] LABS: Basophils % 0.3 %; Eosinophils # 0.1 10^3/uL (0.0-0.8); Eosinophils % 0.6 %; Hematocrit 44.4 % (36-47); Lymphocytes # 1.9 10^3/uL (0.8-4.8); Lymphocytes % 20.1 %; Mean Corpuscular HGB Conc 33.1 g/dL (30-55); Mean Corpuscular Hemoglobin 31.2 pg (27-33); Mean Corpuscular Volume 94.3 fl (85-98); Mean Platelet Volume 9.8 fL (7.4-10.4); Monocytes # 0.6 10^3/uL (0.2-0.9); Monocytes % 6.6 %; Neutrophils # 6.84 10^3/uL (1.8-7.7); Nucleated Red Blood Cells % 0 %; Platelet Count 294 10^3/cmm (157-399); Red Blood Count 4.71 10^6/uL (3.85-5.65); Red Cell Distribution Width 12.3 % (12.1-15.1); White Blood Count 9.51 10^3/uL (3.29-11.43)
[2023-10-20 12:09] LABS: Alanine Aminotransferase 15 U/L (0-33); Albumin Level 3.5 g/dL (3.5-5.2); Alkaline Phosphatase 79 U/L (35-105); Anion Gap 13.1 (5-19); Aspartate Amino Transferase 12 U/L (0-32); Blood Urea Nitrogen 11 mg/dL (6-20); Calcium 8.5 mg/dL (8.5-10.5); Carbon Dioxide 26 mmol/L (22-29); Chloride 105 mmol/L (98-107); Creatinine Clr Calc Pharmacy 148.6844; Globulin 3.2 g/dL (1.3-4.6); Glucose 89 mg/dL (65-115); Osmolality Calculated 289 mOsm/kg (285-295); Potassium 4.1 mmol/L (3.5-5.1); Sodium 140 mmol/L (136-145); Total Bilirubin 0.3 mg/dL (0.15-1.2); Total Protein 6.7 g/dL (6.6-8.7)
[2023-10-20 12:44] VITALS: BP 135/93; PULSE 66; RESP 18; O2SAT 100
[2023-10-20 12:58] VITALS: BP 157/104; PULSE 86; RESP 17; O2SAT 98
--- NOTE | 2023-10-25 07:43 | DCPLANNER ---
Message sent to Cardiology for a 48 hr holter monitor appointment.
--- NOTE | 2023-10-25 08:16 | DCPLANNER ---
Sent to centralized scheduling for authorization and scheduling
== END 2023-10-20 13:00 | disposition home or self-care (01) ==
PROVIDERS: Emergency Provider Family Medicine; PCP Family Medicine
DX: G45.9 Transient cerebral ischemic attack, unspecified (principal)
CPT/HCPCS: 70450; 71045; 80053; 85025; 93005; 99285

== ENCOUNTER 2023-11-01 13:46 | Outpatient (CLI) | payer OTHER, SELFPAY ==
--- NOTE | 2023-11-01 13:54 | USCV_ITS ---
Mark Koo Age: 53 Gender: F : 1970 Exam Date: 11/01/2023 14:49 Ordering Phys: Mikael Treadwell DO Technologist: [place] [facility] [place]: cp BP: 130 / 86 HR: 69 Rhythm: Sinus Technical Quality: Adequate MEASUREMENTS (Male / Female) Normal Values 2D ECHO LVOT Diameter 2.5 cm LV Ejection Fraction MOD 2C 64.4 % LV Ejection Fraction 2C AL 62.8 % LA Diameter 4.3 cm RA Systolic Volume 4C AL 43.1 ml RA Systolic Volume 4C MOD 41.5 ml Aorta at Sinotubular Diameter 2.7 cm M-MODE LA Ao Ratio MM 1.2 AV Cusp Separation MM 2.2 cm DOPPLER AV Peak Velocity 116.0 cm/s LVOT Peak Velocity 85.0 cm/s AV Area Cont Eq vti 4.0 cm squared AV Area Cont Eq pk 3.5 cm squared MV Peak Velocity 564.0 cm/s MV Area PHT 3.9 cm squared Mitral E to A Ratio 0.7 TV Peak Velocity 230.5 cm/s TR Peak Velocity 240.0 cm/s TR Peak Gradient 23.0 mmHg TV Peak E Velocity 68.0 cm/s Right Atrial Pressure 3.0 mmHg Pulmonary Artery Systolic Pressu 26.0 mmHg PV Peak Velocity 94.5 cm/s FINDINGS Left Ventricle Normal left ventricular size, systolic function and wall thickness, with no regional wall motion abnormalities. Grade I/IV diastolic dysfunction (abnormal relaxation filling pattern), normal to mildly elevated filling pressures. Left ventricular ejection fraction is estimated at 60 %. Right Ventricle Normal right ventricular size and systolic function. Normal right ventricular systolic pressure. Right Atrium The right atrium is normal in size. Left Atrium Moderately increased left atrial size. Mitral Valve Structurally normal mitral valve. Mild-moderate mitral valve regurgitation. Aortic Valve Structurally normal aortic valve without significant sclerosis or stenosis. There is no aortic regurgitation. Tricuspid Valve Structurally normal tricuspid valve. Trace to mild tricuspid valve regurgitation. Pulmonic Valve Pulmonic valve not well visualized. Pericardium Normal pericardium without effusion. Aorta Normal ascending aorta dimension. IVC The inferior vena cava appears normal. CONCLUSIONS Normal left ventricular size, systolic function and wall thickness, with no regional wall motion abnormalities. Grade I/IV diastolic dysfunction (abnormal relaxation filling pattern), normal to mildly elevated filling pressures. Left ventricular ejection fraction is estimated at 60 %. Moderately increased left atrial size. Structurally normal mitral valve. Mild-moderate mitral valve regurgitation. There are no prior echocardiogram studies to compare. Dr. Yemi Peralta MD (Electronically Signed) Final Date: 02 November 2023 09:07 S
--- NOTE | 2023-11-01 13:54 | USCV_ITS ---
Mark Koo Age: 53 Gender: F : 1970 Exam Date: 11/01/2023 14:27 Ordering Phys: Mikael Treadwell DO Technologist: CT [place] [facility] [place]: stenosis Risk Factors: Previous Vascular Surgery: Right Brachial BP: / Left Brachial BP: / Right Left Velocity (cm/s) Spectral Plaque Velocity (cm/s) Spectral Plaque Syst/Diast Broadening Syst/Diast Broadening 95.70/ 24.50 Prox CCA 71.80 / 25.30 87.90/ 21.90 Mid CCA 84.50 / 29.60 91.20/ 29.20 Distal CCA 79.70 / 28.10 51.70/ 18.50 Prox ICA 62.80 / 25.70 72.90/ 23.70 Mid ICA 41.90 / 19.10 73.70/ 26.60 Distal ICA 62.80 / 25.70 84.70 ECA 60.30 0.80 ICA/CCA 0.80 Antegrade Vertebral Antegrade 38.70/ 12.30 cm/s 33.90/ 10.60 cm/s Tri Subclavian Tri 70.60 71.50 FINDINGS Comparison: none available. No significant elevation of systolic or diastolic velocities. Waveforms are normal. Mild carotid atherosclerosis. Antegrade vertebral arteries. CONCLUSIONS Bilateral ICA stenosis less than 50%. Mild carotid atherosclerosis. Dr. Jackie Vanegas DO (Electronically Signed) Final Date: 02 November 2023 07:44 S
== END 2023-11-01 13:47 | disposition home or self-care (01) ==
LOC: RAD 13:47
PROVIDERS: PCP Family Medicine; Visit Provider Family Medicine
DX: G45.9 Transient cerebral ischemic attack, unspecified (principal); R07.9 Chest pain, unspecified; I51.89 Other ill-defined heart diseases; I34.0 Nonrheumatic mitral (valve) insufficiency
CPT/HCPCS: 93306; 93880

== ENCOUNTER 2023-11-22 11:01 | Outpatient (CLI) | payer OTHER, SELFPAY ==
--- NOTE | 2023-11-22 11:07 | MR_ITS ---
WS: [id number] MRI BRAIN WITH AND WITHOUT CONTRAST HISTORY: TIA COMPARISON: CT head 10/20/2023 TECHNIQUE: Multiplanar imaging performed through the brain with MultiHance 20 ml's IV. No diffusion abnormalities are identified. There is no acute ischemic event. There are numerous corti scott and subcortical hyperintensities. These are bilateral and slightly greater on the RIGHT. There is involvement of the posterior RIGHT frontal and the parietal lobe. Lesser cortical involvement LEFT p osterior frontal lobe. Bilateral cerebellar infarcts. No hemorrhage. No hemosiderin. Ventricles and extra-axial spaces are normal. Clivus and pituitary gland are normal. Postcontrast images are negative for masses or vascular malformations. Dural venous sinuses are normal. Paranasal sinuses: Well aerated with no significant disease. Mastoid air cells: Normal. Calvarium and scalp: Normal. IMPRESSION: 1. Normal diffusion imaging. No acute infarct. 2. Bilateral, multi arterial territory prior ischemic changes in the supratentorial brain. Prior genet ateral lacunar infarcts in the cerebellum. Multi arterial territory changes are most likely related t o ischemia and vascular disease. Advanced disease more than expected for the patient's age. 3. No enhancing mass.
[2023-11-22] MEDS: gadobenate dimeglumine 20 mL vial IV (12:00)
== END 2023-11-22 11:02 | disposition home or self-care (01) ==
LOC: RAD 11:02
PROVIDERS: PCP Family Medicine; Visit Provider Family Medicine
DX: G45.9 Transient cerebral ischemic attack, unspecified (principal)
CPT/HCPCS: 70553; A9577

== ENCOUNTER → 2024-02-28 09:06 | Outpatient (BNVA) | payer OTHER, SELFPAY | PROVIDERS: PCP Family Medicine; Visit Provider Family Medicine | DX: I10 Essential (primary) hypertension (principal) | CPT/HCPCS: 80048 ==

== ENCOUNTER → 2024-03-19 09:53 | Outpatient (BNVA) | payer OTHER, SELFPAY | PROVIDERS: PCP Family Medicine; Referring Provider Family Medicine; Visit Provider Specialist | DX: I82.402 Acute embolism and thrombosis of unspecified deep veins of left lower extremity (principal); I63.89 Other cerebral infarction | CPT/HCPCS: 36415; 85303; 85306; 86160; 86162; 86235; 86255; 86376 ==

== ENCOUNTER 2024-03-20 08:22 | Outpatient (CLI) | payer OTHER, SELFPAY ==
--- NOTE | 2024-03-20 08:45 | USCV_ITS ---
Mark Koo Age: 53 Gender: F : 1970 Exam Date: 03/20/2024 08:31 Ordering Phys: Nat Golden MD Technologist: Exam Location: [facility] – [place] Indication: tia x 4 BP: 134 / 76 HR: 56 Rhythm: Sinus Technical Quality: Adequate MEASUREMENTS (Male / Female) Normal Values 2D ECHO LV Diastolic Diameter PLAX 3.8 cm 4.2 - 5.9 / 3.9 - 5.3 cm LV Systolic Diameter PLAX 2.7 cm IVS Diastolic Thickness 1.4 cm 0.6 - 1.0 / 0.6 - 0.9 cm IVS Systolic Thickness 1.6 cm LVPW Diastolic Thickness 1.2 cm 0.6 - 1.0 / 0.6 - 0.9 cm LVPW Systolic Thickness 1.6 cm LVOT Diameter 2.2 cm LV Ejection Fraction 2D Teich 56.9 % LV Ejection Fraction MOD 4C 67.7 % LV Ejection Fraction MOD 2C 60.5 % LV Ejection Fraction 2C AL 61.3 % LA Diameter 3.7 cm RA Systolic Volume 4C AL 30.2 ml RA Systolic Volume 4C MOD 16.4 ml LA Sys Volume AL 72.6 cm cubed LA Sys Volume Index AL 28.5 cm cubed/m squared Aorta at Sinotubular Diameter 2.6 cm M-MODE LA Ao Ratio MM 1.2 AV Cusp Separation MM 2.2 cm DOPPLER AV Peak Velocity 106.0 cm/s LVOT Peak Velocity 86.0 cm/s AV Area Cont Eq vti 4.4 cm squared AV Area Cont Eq pk 3.2 cm squared MV Peak Velocity 116.0 cm/s MV Area PHT 2.1 cm squared Mitral E to A Ratio 1.0 TV Peak Velocity 160.5 cm/s TR Peak Velocity 236.0 cm/s TR Peak Gradient 22.3 mmHg TV Peak E Velocity 110.0 cm/s Right Atrial Pressure 3.0 mmHg Pulmonary Artery Systolic Pressu 25.3 mmHg PV Peak Velocity 101.0 cm/s FINDINGS Left Ventricle Left ventricle is normal in size. LV systolic function is normal with EF of 55 to 60%. No regional wall motion abnormalities are seen. Right Ventricle Normal in size and function Right Atrium Normal in size. No evidence of interatrial shunting seen. Left Atrium Normal in size Mitral Valve Structurally normal mitral valve. Mild to moderate mitral regurgitation Aortic Valve Structurally normal aortic valve. No significant stenosis or regurgitation. Tricuspid Valve Mild tricuspid regurgitation. Pulmonary artery systolic pressure is normal. Pulmonic Valve Not well visualized Pericardium Normal Aorta Normal in size IVC Not well visualized CONCLUSIONS LV systolic function is normal with EF of 55 to 60%. No evidence of interatrial shunting seen. Mild to moderate mitral regurgitation Mild tricuspid regurgitation Compared to prior echocardiogram from 10/2023, no significant changes are seen. Jimenez Wright MD (Electronically Signed) Final Date: 02 April 2024 11:51 S
== END 2024-03-20 08:23 | disposition home or self-care (01) ==
LOC: RAD 08:23
PROVIDERS: Visit Provider Specialist
DX: I63.89 Other cerebral infarction (principal)
CPT/HCPCS: C8929

== ENCOUNTER 2024-04-02 09:47 | Outpatient (CLI) | payer OTHER, SELFPAY ==
--- NOTE | 2024-04-02 10:00 | MM_ITS ---
WS: [id number] BILATERAL 3D TOMOSYNTHESIS DIGITAL SCREENING MAMMOGRAM WITH CAD CLINICAL INFORMATION: breast cancer screening HISTORY: Screening mammogram. No current complaints. COMPARISON: 2022 TECHNIQUE: Bilateral CC and MLO views. FINDINGS: Fatty-replaced breasts bilaterally. No suspicious focal mass, asymmetry, calcifications, or microstrategy architect developer ural distortion. No evidence of malignancy. Incidental punctate and lucent centered calcifications. S table intramammary lymph nodes. MM/[place] [id number] IMPRESSION: BI-RADS: 2-Benign FOLLOW UP: 1 Year Follow-up Recommend return to annual screening mammography.
== END 2024-04-02 09:48 | disposition home or self-care (01) ==
LOC: MOBLMAM 10:15
PROVIDERS: PCP Family Medicine; Visit Provider Family Medicine
DX: Z12.31 Encounter for screening mammogram for malignant neoplasm of breast (principal)
CPT/HCPCS: 77063; 77067; 80048

== ENCOUNTER 2024-04-29 08:25 | Outpatient (CLI) | payer OTHER, SELFPAY ==
--- NOTE | 2024-04-29 08:45 | MR_ITS ---
WS: [id number] MRA CAROTID ARTERIES HISTORY: I63.89 - Other cerebral infarction COMPARISON: Carotid ultrasound 11/01/2023 TECHNIQUE: MRA is performed with intravenous gadolinium. MIP and source images are reviewed. Right: Common carotid arteries patent. There is very slight narrowing at the origin of the cervical R IGHT ICA due to plaque. No high-grade stenosis. External carotid artery is widely patent. Left: Normal appearance cervical carotid artery. There is a focal stenosis at the origin of the LEFT ICA of approximately 50%. No high-grade stenosis. Subclavian Arteries: Both are patent. No high-grade stenosis. Vertebral Arteries: Vertebral arteries are both identified. LEFT vertebral artery is small caliber. B oth are patent. MR/MR angio neck w con* [id number] IMPRESSION: 1. No high-grade cervical carotid artery stenosis. 2. Approximately 50% stenosis origin of the LEFT cervical ICA. 3. Less than 50% stenosis origin RIGHT cervical ICA. 4. Vertebral arteries are small in caliber throughout their course but they ar e patent. RIGHT vertebral artery is dominant.
--- NOTE | 2024-04-29 09:30 | MR_ITS ---
WS: [id number] MRA ANGIOGRAPHY [place] HISTORY: I63.89 - Other cerebral infarction COMPARISON: Prior MRI brain 11/22/2023 TECHNIQUE: 3-D MR angiography is performed of the [place]. All images are reviewed including source images. Small caliber but patent distal vertebral arteries. Basilar artery is intact. Posterior cerebral sadie priya are normal. No aneurysms or occlusions. Posterior communicating arteries are robust. Mild atherosclerotic plaque through the cavernous carotid arteries. Supraclinoid carotid arteries dem onstrate moderate narrowing, LEFT greater than RIGHT. There is no occlusion. No aneurysm. Middle cere bral arteries are patent proximally. The M1 segments are normal. Very small RIGHT M2 segment. LEFT M2 segment appears appropriate. There is a paucity of vessels in the distal RIGHT middle cerebral arter y segment beginning at the level of M2. Anterior communicating arteries are normal. MR/MR angio head wo con [id number] IMPRESSION: 1. Focal narrowing of the supraclinoid internal carotid arteries with at least moderate narrowing, LEFT greater than RIGHT. 2. Small caliber RIGHT middle cerebral artery beginning at M2. Decreased flow at M2 with posterior vessels distally. Consistent with vascular disease. 3. Improved flow in the LEFT middle cerebral artery. 4. No aneurysm.
[2024-04-29] MEDS: gadobenate dimeglumine 20 mL vial IV (11:05)
== END 2024-04-29 08:26 | disposition home or self-care (01) ==
LOC: RAD 08:25
PROVIDERS: PCP Family Medicine; Visit Provider Specialist
DX: I65.23 Occlusion and stenosis of bilateral carotid arteries (principal); I63.89 Other cerebral infarction
CPT/HCPCS: 36415; 70544; 70548; 85303; 85306; 86160; 86162; 86235; 86255; 86376; A9577

== ENCOUNTER → 2024-06-12 08:55 | Outpatient (BNVA) | payer OTHER, SELFPAY | PROVIDERS: PCP Family Medicine; Visit Provider Specialist | DX: I63.89 Other cerebral infarction (principal) | CPT/HCPCS: 80503; 82945; 84157; 87070; 87075; 87205; 89050 ==

== ENCOUNTER → 2024-07-03 15:33 | Outpatient (BNVA) | payer OTHER, SELFPAY | PROVIDERS: PCP Nurse Practitioner; Visit Provider Nurse Practitioner | DX: I10 Essential (primary) hypertension; E55.9 Vitamin D deficiency, unspecified | CPT/HCPCS: 80053; 80061; 81000; 82306; 82607; 84443; 85025 ==

== ENCOUNTER → 2024-10-16 08:34 | Outpatient (BNVA) | payer OTHER, SELFPAY | PROVIDERS: PCP Nurse Practitioner; Visit Provider Nurse Practitioner | DX: I10 Essential (primary) hypertension (principal); R73.9 Hyperglycemia, unspecified | CPT/HCPCS: 80053; 83036 ==

== ENCOUNTER → 2024-12-11 16:22 | Outpatient (BNVA) | payer OTHER, SELFPAY | PROVIDERS: PCP Nurse Practitioner; Visit Provider Nurse Practitioner Women's Health | DX: N91.2 Amenorrhea, unspecified (principal); Z01.419 Encounter for gynecological examination (general) (routine) without abnormal findings | CPT/HCPCS: 82670; 83001; 87624 ==

== ENCOUNTER 2025-01-02 17:01 | Outpatient (CLI) | payer OTHER, SELFPAY ==
--- NOTE | 2025-01-02 17:06 | XRR_ITS ---
PROCEDURE INFORMATION: Exam: XR Thoracic Spine Exam date and time: 01/02/2025 5:09 PM Age: 54 years old Clinical indication: Pain in thoracic spine; Without myelpathy or radiculopathy; Additional info: M54.9 - dorsalgia, unspecified TECHNIQUE: Imaging protocol: Radiologic exam of the thoracic spine. Views: 3 views. COMPARISON: CR XR chest 1V portable [id number] 10/20/2023 10:36 AM FINDINGS: Bones/joints: No acute fractures or malalignment identified radiographically. Moderate multilevel degenerative disc changes of the thoracic spine. Soft tissues: Unremarkable. Lungs: Calcified granuloma in the right lower lobe. XR/XR thoracic spine 3V* [id number] IMPRESSION: 1. No acute fractures or malalignment identified radiographically. 2. If there is continued clinical suspicion for thoracic spine fractures, dedicated CT scan would be more sensitive exam.
--- NOTE | 2025-01-02 17:06 | XRR_ITS ---
PROCEDURE INFORMATION: Exam: XR Lumbosacral Spine Exam date and time: 01/02/2025 5:09 PM Age: 54 years old Clinical indication: Low back pain; Additional info: M54.9 - dorsalgia, unspecified TECHNIQUE: Imaging protocol: Radiologic exam of the lumbosacral spine. Views: 2 or 3 views. COMPARISON: CR (CHEST, ) 01/02/2025 5:09 PM FINDINGS: Bones/joints: Grade 2 anterolisthesis of L5 on S1 measuring 14 mm. Chronic L5 pars defects. No acute fractures. No bony destructive lesions. Mild multilevel degenerative disc changes of the lumbar spine. Soft tissues: Unremarkable. XR/XR lumbar spine 2-3V* [id number] IMPRESSION: 1. No acute fractures. 2. Grade 2 anterolisthesis of L5 on S1 measuring 14 mm. 3. Chronic L5 pars defects. Shortness at
== END 2025-01-02 17:02 | disposition home or self-care (01) ==
PROVIDERS: PCP Nurse Practitioner; Visit Provider Nurse Practitioner
DX: M51.34 Other intervertebral disc degeneration, thoracic region (principal); E55.9 Vitamin D deficiency, unspecified; J84.10 Pulmonary fibrosis, unspecified; M43.17 Spondylolisthesis, lumbosacral region; M51.369 Other intervertebral disc degeneration, lumbar region without mention of lumbar back pain or lower extremity pain
CPT/HCPCS: 72072; 72100; 82306

== ENCOUNTER → 2025-04-15 09:37 | Outpatient (BNVA) | payer OTHER, SELFPAY | PROVIDERS: PCP Nurse Practitioner; Visit Provider Nurse Practitioner | DX: I10 Essential (primary) hypertension (principal); E55.9 Vitamin D deficiency, unspecified | CPT/HCPCS: 80053; 80061; 82306 ==